=== PATIENT | female | born 1960 | race Caucasian/White ===

== ENCOUNTER → 2017-11-01 | Outpatient (CLI) | payer OTHER | END | disposition home or self-care (01) | LOC: KCIC US 07:40 | DX: K76.0 Fatty (change of) liver, not elsewhere classified (principal); Z87.891 Personal history of nicotine dependence; Z85.53 Personal history of malignant neoplasm of renal pelvis | CPT/HCPCS: 76705 ==

== ENCOUNTER 2019-12-24 18:34 | Emergency (ER) | payer OTHER ==
[2015-04-02 22:44] VITALS: BP 107/56
== END 2019-12-24 19:33 | disposition left against medical advice (07) ==
LOC: ER 18:34
DX: R05 Cough (principal); Z53.21 Procedure and treatment not carried out due to patient leaving prior to being seen by health care provider